=== PATIENT | female | born 1990 | race Two or more races ===

== ENCOUNTER 2018-07-05 11:16 | Outpatient (CLI) | payer OTHER ==
[~2018-07-05 11:16] MED LIST: ALLEGRA ALLERG180 MG PO; FLONASE16 GM NS; ORPH100T PO; PANADOL EXTRA500 MG PO; ZYRTEC5 MG PO
== END 2018-07-05 12:05 | disposition home or self-care (01) ==
LOC: LAB 11:16
DX: J11.1 Influenza due to unidentified influenza virus with other respiratory manifestations (principal)

== ENCOUNTER 2019-06-05 11:09 | Emergency (ER) | payer OTHER ==
[~2019-06-05] VITALS: Ht 152.4 cm; Wt 54.4 kg
[2019-06-05] MEDS ORDERED: FIORICET (11:27)
== END 2019-06-05 16:33 | disposition home or self-care (01) ==
LOC: ER 11:09
DX: K29.70 Gastritis, unspecified, without bleeding (principal)

== ENCOUNTER 2019-10-31 12:54 | Outpatient (CLI) | payer OTHER ==
[~2019-10-31 12:54] MED LIST changes: +FIORICET
== END 2019-10-31 13:07 | disposition home or self-care (01) ==
LOC: SONOGRAMA 12:54
DX: R10.2 Pelvic and perineal pain (principal)

== ENCOUNTER 2020-04-02 21:17 | Emergency (ER) | payer OTHER ==
[~2020-04-02] VITALS: Ht 152.4 cm; Wt 54.4 kg
[2020-04-02] MEDS ORDERED: AMBIEN10 MG (21:57)
[2020-04-02] MEDS ORDERED: ATIVAN0.5 M1 (21:57)
[2020-04-02] MEDS ORDERED: EFESOR (21:58)
[2020-04-03] MEDS ORDERED: 8 HOUR650 MG PO (00:07)
== END 2020-04-03 00:17 | disposition home or self-care (01) ==
LOC: ER 21:17
DX: K05.00 Acute gingivitis, plaque induced (principal)

== ENCOUNTER 2021-01-14 15:31 | Emergency (ER) | payer OTHER ==
[~2021-01-14] VITALS: Ht 152.4 cm; Wt 56.7 kg
[~2021-01-14 15:31] MED LIST changes: +8 HOUR650 MG PO; +AMBIEN10 MG; +ATIVAN0.5 M1; +EFESOR
[2021-01-14] MEDS ORDERED: PROZAC20 MG (16:17)
[2021-01-14] MEDS ORDERED: PHENERGAN25 MG (16:18)
[2021-01-14] MEDS ORDERED: DICY20TA (16:19)
[2021-01-14] MEDS ORDERED: JUNEL FE 1 MG-1 EACH (16:19)
== END 2021-01-14 20:06 | disposition home or self-care (01) ==
LOC: ER 15:31
DX: A05.9 Bacterial foodborne intoxication, unspecified (principal); R11.2 Nausea with vomiting, unspecified

== ENCOUNTER 2021-09-09 12:32 | Outpatient (CLI) | payer OTHER ==
[~2021-09-09 12:32] MED LIST changes: +DICY20TA; +JUNEL FE 1 MG-1 EACH; +PHENERGAN25 MG; +PROZAC20 MG
== END 2021-09-09 12:46 | disposition home or self-care (01) ==
LOC: RAD 12:32
PROVIDERS: ATTEND Physical Medicine & Rehabilitation
DX: S13.4XXA Sprain of ligaments of cervical spine, initial encounter (principal)

== ENCOUNTER 2022-05-02 10:07 | Outpatient (CLI) | payer OTHER | END 2022-05-02 10:18 | disposition home or self-care (01) | LOC: MRI 10:07 | PROVIDERS: ATTEND Obstetrics & Gynecology Gynecology | DX: N80.00 Endometriosis of the uterus, unspecified (principal) | CPT/HCPCS: 72196 ==

== ENCOUNTER 2022-09-04 22:13 | Emergency (ER) | payer OTHER ==
[~2022-09-04] VITALS: Ht 157.5 cm; Wt 54.9 kg
== END 2022-09-04 23:59 | disposition home or self-care (01) ==
LOC: ER 22:13
DX: L03.012 Cellulitis of left finger (principal); Z88.6 Allergy status to analgesic agent; Z88.8 Allergy status to other drugs, medicaments and biological substances

== ENCOUNTER 2023-03-03 15:17 | Emergency (ER) | payer OTHER ==
[~2023-03-03] VITALS: Ht 167.6 cm; Wt 70.8 kg
== END 2023-03-03 19:35 | disposition home or self-care (01) ==
LOC: ER 15:17
DX: S42.252A Displaced fracture of greater tuberosity of left humerus, initial encounter for closed fracture (principal); W18.39XA Other fall on same level, initial encounter; Y93.9 Activity, unspecified; Y92.018 Other place in single-family (private) house as the place of occurrence of the external cause; Y99.9 Unspecified external cause status; Z88.6 Allergy status to analgesic agent; Z88.8 Allergy status to other drugs, medicaments and biological substances

== ENCOUNTER 2023-03-21 16:22 | Emergency (ER) | payer OTHER ==
[~2023-03-21] VITALS: Ht 152.4 cm; Wt 57.6 kg
[2023-03-21] MEDS ORDERED: PROZAC20 MG PO (17:22)
== END 2023-03-21 21:32 | disposition home or self-care (01) ==
LOC: ER 16:22
DX: M25.511 Pain in right shoulder (principal); Z88.8 Allergy status to other drugs, medicaments and biological substances; E11.9 Type 2 diabetes mellitus without complications

== ENCOUNTER 2024-06-10 10:07 | Emergency (ER) | payer OTHER ==
[~2024-06-10] VITALS: Ht 152.4 cm; Wt 58.1 kg
[~2024-06-10 10:07] MED LIST changes: +BUTALB-ACETAMI1 EACH PO; +METHOCARBAMOL500 MG PO; +PROZAC20 MG PO
[2024-06-10] MEDS ORDERED: MONTELUKAST SODIUM 10 MG TABLET PO ONE (11:30)
[2024-06-10] MEDS ORDERED: 0.9 % SODIUM CHLORIDE 500 ML IV ONE (11:30)
[2024-06-10] MEDS ORDERED: ONDANSETRON HCL 2 MG/ML VIAL IV ONE (11:30)
[2024-06-10] MEDS ORDERED: BENZONATATE 100 MG CAPSULE PO ONE (11:30)
[2024-06-10 12:35] LABS: HEMATOCRIT 29.3 % (36.0-45.00); MEAN CELL VOLUME 84.9 fL (80.00-100.00); MEAN CORPUSCULAR HGB CONC 33.5 g/dl (32.0-36.0); PLATELET COUNT 732 K/uL (150-450); RED BLOOD COUNT 3.46 M/uL (4.00-6.00)
[2024-06-10 12:38] LABS: HEMOGLOBIN 9.8 g/dL (12.0-15.00); MEAN CORPUSCULAR HEMOGLOBIN 28.3 pg (27.00-32.0); RED CELL DISTRIBUTION WIDTH 16.6 % (11.5-14.5)
[2024-06-10] MEDS ORDERED: IRON325 MG PO (13:34)
== END 2024-06-10 13:39 | disposition home or self-care (01) ==
LOC: ER 10:09
PROVIDERS: General Practice
DX: J00 Acute nasopharyngitis [common cold] (principal); Z88.8 Allergy status to other drugs, medicaments and biological substances; F32.89 Other specified depressive episodes; D64.9 Anemia, unspecified; Z20.822 Contact with and (suspected) exposure to COVID-19